=== PATIENT | female | born 1985 | race Caucasian/White ===

== ENCOUNTER → 2018-07-01 | Outpatient (CLI) | payer OTHER | END | disposition home or self-care (01) | LOC: LAB 15:47 | PROVIDERS: ATTEND Nurse Practitioner Primary Care | DX: Z32.01 Encounter for pregnancy test, result positive (principal) | CPT/HCPCS: 36415; 84702 ==

== ENCOUNTER → 2018-12-20 | Outpatient (CLI) | payer OTHER ==
[2018-12-20 11:24] LABS: BASOPHILS # (AUTO) 0.09 x10^3/uL (0-0.1); BASOPHILS % (AUTO) 1 % (0-1); EOSINOPHILS # (AUTO) 0.27 x10^3/uL (0-0.4); EOSINOPHILS % (AUTO) 2 % (1-7); LYMPHOCYTES # (AUTO) 1.75 x10^3/uL (1-3.4); LYMPHOCYTES % (AUTO) 15 % (22-44); MD NO; MEAN CORPUSCULAR HGB CONC 33.6 g/dL (32.4-35.8); MEAN CORPUSCULAR VOLUME 86.4 fL (80-100); MEAN PLATELET VOLUME 7.1 fL (7.4-10.4); MONOCYTES # (AUTO) 0.48 x10^3/uL (0.2-0.8); MONOCYTES % (AUTO) 4 % (2-9); NEUTROPHILS # (AUTO) 9.34 x10^3/uL (1.8-6.8); NEUTROPHILS % (AUTO) 78 % (42-75); PLATELET COUNT 306 x10^3/uL (130-400); RED BLOOD COUNT 3.94 x10^6/uL (3.82-5.3); RED CELL DISTRIBUTION WIDTH 15.1 % (9.6-15.2)
== END | disposition home or self-care (01) ==
LOC: LAB 09:52
PROVIDERS: ATTEND Obstetrics & Gynecology
DX: Z34.80 Encounter for supervision of other normal pregnancy, unspecified trimester (principal)
CPT/HCPCS: 36415; 82950; 85025; 86592

== ENCOUNTER 2019-01-30 12:52 | Outpatient (CLI) | payer OTHER ==
[~2019-01-30] VITALS: Ht 160 cm; Wt 89.0 kg
[2019-01-30 13:02] VITALS: BP 115/64
== END 2019-01-30 14:20 | disposition home or self-care (01) ==
LOC: LDOP 12:52
PROVIDERS: ATTEND Obstetrics & Gynecology
DX: O42.92 Full-term premature rupture of membranes, unspecified as to length of time between rupture and onset of labor (principal); Z3A.37 37 weeks gestation of pregnancy
CPT/HCPCS: 59025; 84112; 99201; G0463

== ENCOUNTER 2019-02-18 10:09 | Inpatient (IN) | payer OTHER ==
[~2019-02-18] VITALS: Ht 160 cm; Wt 87.3 kg
[2019-02-22 21:38] VITALS: BP 111/65
[2019-02-22] MEDS ORDERED: SERT100T PO (21:57)
[2019-02-22] MEDS ORDERED: PREN1TAB60 PO (21:57)
[2019-02-22] MEDS ORDERED: OXYTOCIN 30U/ 0.9% NaCL 500ML 500 ML IV ONE (21:58)
[2019-02-22] MEDS ORDERED: OXYTOCIN 30U/ 0.9% NaCL 500ML 500 ML IV PRN (21:58)
[2019-02-22] MEDS ORDERED: FENTANYL PF 100 MCG/2ML IVPush PRN (22:00)
[2019-02-22] MEDS ORDERED: SODIUM CHLORIDE FLUSH 10ML SYR IVF PRN (22:00)
[2019-02-22] MEDS ORDERED: ONDANSETRON 2MG/ML, 2ML IVPush PRN (22:00)
[2019-02-22] MEDS ORDERED: MISOPROSTOL 25 MCG TABLET VG PRN (22:00)
[2019-02-22] MEDS ORDERED: MISOPROSTOL 25 MCG TABLET ONE (22:06)
[2019-02-22 22:13] LABS: MEAN CORPUSCULAR HGB CONC 32.5 g/dL (32.4-35.8); MEAN PLATELET VOLUME 7.2 fL (7.4-10.4); PLATELET COUNT 324 x10^3/uL (130-400); RED CELL DISTRIBUTION WIDTH 17.3 % (9.6-15.2)
[2019-02-22] MEDS: LACTATED RINGERS 1,000 ML IV SCH (22:23)
[2019-02-22] MEDS ORDERED: OXYTOCIN 30U/ 0.9% NaCL 500ML 500 ML ONE (22:37)
[2019-02-22] MEDS ORDERED: LIDOCAINE 1%, 20ML ONE (22:37)
[2019-02-22] MEDS ORDERED: MISOPROSTOL 200 MCG TABLET ONE (22:37)
[2019-02-22 22:40] LABS: MD YES
[2019-02-22 22:43] LABS: BAND#(MANUAL) 0.14 x10^3/uL; BANDS%(MANUAL) 1 % (0-7); EOS#(MANUAL) 0.42 x10^3/uL (0.0-0.4); EOS% (MANUAL) 3 % (1-7); LYMPH#(MANUAL) 2.38 x10^3/uL (1-3.4); LYMPHS% (MANUAL) 17 % (22-44); MONOS% (MANUAL) 5 % (2-9); SEG#(MANUAL) 10.36 x10^3/uL (1.8-6.8); SEGS% (MANUAL) 74 % (42-75)
[2019-02-22 22:44] LABS: <PLATELET ESTIMATE> ADEQUATE; ANISOCYTOSIS 1+; SMALL PLATELETS 1+
[2019-02-23] MEDS: LACTATED RINGERS 1,000 ML IV SCH ×4 (00:46→22:23)
[2019-02-23] MEDS: D5%-LACTATED RINGERS 1,000 ML IV SCH ×5 (00:46→21:58)
[2019-02-23 01:28] LABS: MICROSCOPIC INDICATED
[2019-02-23] MEDS ORDERED: FENTANYL PF 100 MCG/2ML ONE (12:42)
[2019-02-23] MEDS ORDERED: ONDANSETRON 2MG/ML, 2ML ONE (12:42)
[2019-02-23] MEDS: FENTANYL PF 100 MCG/2ML IV PRN ×2 (12:49→13:01)
[2019-02-23] MEDS ORDERED: FENTANYL/BUPIV./NS/PF 250 ML EPIDCONT SCH ×2 (14:55→17:37)
[2019-02-23] MEDS ORDERED: LACTATED RINGERS 1,000 ML IVBOLUS PRN ×2 (15:00→18:00)
[2019-02-23] MEDS ORDERED: FENTANYL PF 500 MCG, BUPIVACAINE/PF 0.5%, 30ML 62.5 ML in SODIUM CHLORIDE 0.9% 177.5 ML EPIDCONT SCH (15:00)
[2019-02-23] MEDS ORDERED: BUPIVACAINE 0.25% ONE (15:28)
[2019-02-23] MEDS ORDERED: LIDOCAINE/PF 1.5%-EPI 1:200K, 30ML ONE (15:29)
[2019-02-23] MEDS ORDERED: EPHEDRINE 50 MG/ML, 1ML ONE (17:27)
[2019-02-23] MEDS ORDERED: LACTATED RINGERS 1,000 ML IV SCH (18:00)
[2019-02-23] MEDS ORDERED: DIPHENHYDRAMINE 50 MG/ML, 1ML IVPush PRN ×2 (18:00→22:00)
[2019-02-23] MEDS ORDERED: ONDANSETRON 2MG/ML, 2ML IVPush PRN (18:00)
[2019-02-23] MEDS ORDERED: NALOXONE 0.4 MG/ML, 1ML IVPush PRN (18:00)
[2019-02-23] MEDS ORDERED: EPHEDRINE 50 MG/ML, 1ML IVPush PRN ×2 (18:00→22:00)
[2019-02-23] MEDS ORDERED: METOCLOPRAMIDE 5 MG/ML, 2ML ONE (20:09)
[2019-02-23] MEDS ORDERED: SODIUM CITRATE/CITRIC ACID 15 ML UDC ONE (20:09)
[2019-02-23] MEDS ORDERED: METOCLOPRAMIDE 5 MG/ML, 2ML IV ONE (20:30)
[2019-02-23] MEDS ORDERED: LACTATED RINGERS 1,000 ML IVBOLUS ONE (20:30)
[2019-02-23] MEDS ORDERED: SODIUM CITRATE/CITRIC ACID 15 ML UDC PO ONE (20:30)
[2019-02-23] MEDS: OXYTOCIN 30U/ 0.9% NaCL 500ML 500 ML IV SCH (20:32)
[2019-02-23] MEDS ORDERED: morphine SULFATE 10 MG/ML, 1ML IM PRN (21:00)
[2019-02-23] MEDS ORDERED: CALCIUM CARBONATE 500 MG TAB.CHEW PO PRN (21:00)
[2019-02-23] MEDS ORDERED: MORPHINE SULFATE 4 MG/ML, 1ML IVPush PRN ×2 (21:00→22:00)
[2019-02-23] MEDS ORDERED: ACETAMINOPHEN 325 MG TABLET PO PRN ×2 (21:00)
[2019-02-23] MEDS ORDERED: DIPH,PERTUSS(ACELL),TET VAC/PF NC IM-VACC PRN (21:00)
[2019-02-23] MEDS ORDERED: OXYcodone/APAP 5/325MG TABLET PO PRN ×2 (21:00)
[2019-02-23] MEDS ORDERED: MEASLES,MUMPS&RUBELLA VACC/PF 0.5 ML SQ-VACC PRN (21:00)
[2019-02-23] MEDS ORDERED: MISOPROSTOL 200 MCG TABLET PO PRN (21:00)
[2019-02-23] MEDS ORDERED: SIMETHICONE 80 MG CHEW TAB PO PRN (21:00)
[2019-02-23] MEDS ORDERED: ONDANSETRON 2MG/ML, 2ML IV PRN ×2 (21:00→22:00)
[2019-02-23] MEDS ORDERED: FENTANYL PF 100 MCG/2ML IV PRN (22:00)
[2019-02-23] MEDS: KETOROLAC 30 MG/1 ML IV SCH (22:00)
[2019-02-23] MEDS ORDERED: HYDROcodone/APAP 7.5-325MG/15ML UDC PO PRN (22:00)
[2019-02-23] MEDS ORDERED: DEXAMETHASONE 4 MG/ML, 1ML IV PRN (22:00)
[2019-02-23] MEDS ORDERED: PROCHLORPERAZINE 5 MG/ML, 2ML IV PRN (22:00)
[2019-02-23] MEDS ORDERED: HYDROcodone/APAP 7.5-325MG/15ML UDC ONE (22:37)
[2019-02-23 23:55] VITALS: BP 103/64
[2019-02-24] MEDS ORDERED: HYDROcodone/APAP 5/325 TABLET PO PRN (00:30)
[2019-02-24 04:00] VITALS: BP 97/59
[2019-02-24] MEDS: KETOROLAC 30 MG/1 ML IV SCH ×4 (04:20→22:25)
[2019-02-24] MEDS: LACTATED RINGERS 1,000 ML IV SCH ×5 (04:32→21:47)
[2019-02-24 05:54] LABS: MEAN CORPUSCULAR HEMOGLOBIN 26.3 pg (27.0-34.8); MEAN CORPUSCULAR VOLUME 82.1 fL (80-100); MEAN PLATELET VOLUME 7.2 fL (7.4-10.4); PLATELET COUNT 271 x10^3/uL (130-400); RED CELL DISTRIBUTION WIDTH 17.9 % (9.6-15.2)
[2019-02-24 06:20] LABS: BASOPHILS # (AUTO) 0.03 x10^3/uL (0-0.1); BASOPHILS % (AUTO) 0 % (0-1); EOSINOPHILS # (AUTO) 0.12 x10^3/uL (0-0.4); EOSINOPHILS % (AUTO) 1 % (1-7); LYMPHOCYTES # (AUTO) 2.01 x10^3/uL (1-3.4); LYMPHOCYTES % (AUTO) 12 % (22-44); MD SCAN; MONOCYTES # (AUTO) 0.92 x10^3/uL (0.2-0.8); MONOCYTES % (AUTO) 5 % (2-9); NEUTROPHILS # (AUTO) 13.84 x10^3/uL (1.8-6.8); NEUTROPHILS % (AUTO) 82 % (42-75)
[2019-02-24] MEDS: OXYTOCIN 30U/ 0.9% NaCL 500ML 500 ML IV SCH ×2 (06:32→16:32)
[2019-02-24] MEDS: DOCUSATE 100 MG CAPSULE PO PRN (07:35)
[2019-02-24] MEDS: PRENATAL VIT/IRON/FA 1 EACH TABLET PO SCH (07:35)
[2019-02-24] MEDS: HYDROcodone/APAP 5/325 TABLET PO PRN ×4 (07:35→20:50)
[2019-02-24 08:00] VITALS: BP 100/62
[2019-02-24 12:14] VITALS: BP 105/72
[2019-02-24 16:43] VITALS: BP 101/64
[2019-02-24 20:10] VITALS: BP 98/62
[2019-02-25] MEDS: HYDROcodone/APAP 5/325 TABLET PO PRN ×4 (01:10→13:50)
[2019-02-25] MEDS: LACTATED RINGERS 1,000 ML IV SCH ×4 (02:32→12:32)
[2019-02-25] MEDS: OXYTOCIN 30U/ 0.9% NaCL 500ML 500 ML IV SCH ×2 (02:32→12:32)
[2019-02-25] MEDS: KETOROLAC 30 MG/1 ML IV SCH ×2 (04:49→10:00)
[2019-02-25] MEDS ORDERED: OXYC-302 PO (07:03)
[2019-02-25] MEDS ORDERED: IBUP-1222 PO (07:03)
[2019-02-25] MEDS: DOCUSATE 100 MG CAPSULE PO PRN (10:01)
[2019-02-25] MEDS: PRENATAL VIT/IRON/FA 1 EACH TABLET PO SCH (10:01)
[2019-02-25 10:06] VITALS: BP 108/68
[2019-02-25] MEDS ORDERED: IBUPROFEN 600 MG TABLET PO PRN (21:00)
== END 2019-02-25 15:24 | disposition home or self-care (01) | DRG 788 ==
LOC: LDIP 02-22 21:06 → 2NW 02-23 23:40
PROVIDERS: ADMIT Obstetrics & Gynecology; ATTEND Obstetrics & Gynecology
PROC: 10D00Z1 Extraction of Products of Conception, Low, Open Approach (ICD-10-PCS; principal; 2019-02-23)
DX: O48.0 Post-term pregnancy (principal); O77.0 Labor and delivery complicated by meconium in amniotic fluid; Z37.0 Single live birth; Z3A.40 40 weeks gestation of pregnancy; O76 Abnormality in fetal heart rate and rhythm complicating labor and delivery
CPT/HCPCS: 36415; J7121; S0020; 81001; 82803; 85025; 86850; 86900; 87086; G0378; J1885; J2405; J3010; J2590; J2765; J7050; J7120